=== PATIENT | female | born 1975 | race Caucasian/White ===

== ENCOUNTER 2018-08-27 16:27 | Emergency (ER) | payer OTHER ==
[~2018-08-27] VITALS: Ht 170.2 cm; Wt 120.2 kg
[~2018-08-27 16:27] MED LIST: AMOXICILLIN875 MG PO; METFORMIN HCL500 MG PO; ZYRTEC10 MG PO
[2018-08-27] MEDS ORDERED: DIPHENHIST50 MG PO (16:41)
[2018-08-27] MEDS ORDERED: GLUCOPHAGE XR500 MG PO (16:41)
[2018-08-27] MEDS ORDERED: PROZAC20 MG PO (16:41)
[2018-08-27] MEDS ORDERED: LOSARTAN-HCTZ1 EACH PO (16:42)
[2018-08-27] MEDS ORDERED: NABUMETONE 750750 M1 PO (16:42)
[2018-08-27] MEDS ORDERED: MOBIC15 MG PO (17:43)
[2018-08-27] MEDS ORDERED: MEDROLDOSEPACK PO (17:43)
[2018-08-27 18:22] VITALS: BP 122/82
== END 2018-08-27 18:23 | disposition home or self-care (01) ==
LOC: M.ERS 16:27
DX: S90.32XA Contusion of left foot, initial encounter (principal); M13.872 Other specified arthritis, left ankle and foot; E11.9 Type 2 diabetes mellitus without complications; F41.9 Anxiety disorder, unspecified; F32.9 Major depressive disorder, single episode, unspecified; Z88.2 Allergy status to sulfonamides; Z98.890 Other specified postprocedural states; Z90.49 Acquired absence of other specified parts of digestive tract; X58.XXXA Exposure to other specified factors, initial encounter; Y93.89 Activity, other specified; Y92.89 Other specified places as the place of occurrence of the external cause; Y99.8 Other external cause status